=== PATIENT | male | born 1960 | race Native Hawaiian/Other Pacific Islander ===

== ENCOUNTER 2016-09-17 08:13 | Outpatient (CLI) | payer BC ==
[2016-09-17 08:42] LABS: PLATELET COUNT 312 K/uL (142-355)
[2016-09-17 09:04] LABS: SODIUM 133 mmol/L (136-145)
== END 2016-09-17 09:13 | disposition home or self-care (01) ==
LOC: LABW 08:13
PROVIDERS: Nurse Practitioner Family
DX: I10 Essential (primary) hypertension (principal); R73.01 Impaired fasting glucose; Z12.5 Encounter for screening for malignant neoplasm of prostate; E78.4 Other hyperlipidemia; Z79.899 Other long term (current) drug therapy; Z51.81 Encounter for therapeutic drug level monitoring
CPT/HCPCS: 36415; 80053; 80061; 83036; 84153; 84550; 85027

== ENCOUNTER 2017-01-10 08:44 | Outpatient (CLI) | payer BC | END 2017-01-10 09:45 | disposition home or self-care (01) | LOC: LABW 08:44 | PROVIDERS: Nurse Practitioner Family | DX: I10 Essential (primary) hypertension (principal); R79.89 Other specified abnormal findings of blood chemistry; R53.83 Other fatigue | CPT/HCPCS: 36415; 80061; 83036; 84403 ==

== ENCOUNTER 2017-02-28 10:14 | Outpatient (CLI) | payer BC | END 2017-02-28 11:15 | disposition home or self-care (01) | LOC: LABW 10:14 | DX: E29.1 Testicular hypofunction (principal) | CPT/HCPCS: 36415; 84403 ==